=== PATIENT | male | born 1955 | race Caucasian/White ===

== ENCOUNTER → 2017-04-11 | Day surgery (SDC) | payer OTHER ==
[~2017-04-11] VITALS: Ht 167.6 cm; Wt 79.4 kg
[~2017-04-11] MED LIST: BACITRACIN28.4 GM NASB; BOTOX200 UNIT INJ; CENTRUM SILVER1 EAC3 PO; CLONAZEPAM1 M2 PO; CLONIDINE HCL0.1 MG PO; CRESTOR5 M1 PO; DOXEPIN HCL10 MG PO; FENOFIBRATE145 M1 PO; FLUOXETINE HCL20 M2 PO; FML5 ML OU; LEVOTHYROXINE25 MCG PO; LOVAZA1 G1 PO; MOBIC7.5 M1 PO; MUCINEX600 M1 PO; NEXIUM20 M1 PO; PROPRANOLOL HCL40 M1 PO; RHINOCORT ALL8.43 ML NASB; VITAMIN D250000 UNIT PO; VITAMIN E400 UNI3 PO
--- NOTE | 2017-04-18 12:04 | Operative Report ---
Operative/Inv Procedure Report Surgery Date: 04/11/17 Name of Procedure: #1. Left rotator cuff repair 2. Subacromial decompression #3 extensive glenohumeral debridement including biceps tenotomy Pre-Operative Diagnosis: #1 impingement #2 extensive glenoid labral tear including superior labrum #3 biceps tendon tear partial Post-Operative Diagnosis: Same with additional rotator cuff tear left Estimated Blood Loss: scant Surgeon/[employer] Repairer: Raina ASHBY,Wilson Klein Anesthesia: general endotracheal tube, block Drains: None Specimens: None Complications: None Condition: Stable Operative Indication: Patient is a 61-year-old man who was diagnosed with extensive circumferential labral tear as well as partial biceps tendon tear and impingement. He was treated conservatively for. Unfortunately had persistent and ongoing symptoms. MRI evaluation confirmed pathology. There was no definite rotator cuff tear but significant inflammation which made obscured a rotator cuff tear. Due to ongoing symptoms that interfere with normal activities of daily living, he wished to proceed with arthroscopic management of the problem. Risks benefits and expectations of procedure were discussed including but not limited to persistent shoulder pain, need for subsequent surgery, stiffness, anesthesia risks, injury blood vessel or nerve. We also discussed the way to deal with the partial biceps tendon tear. I explained to the patient that he would be better off with biceps tenotomy based on his age and activity expectations. However we did discuss the option of biceps tendon repair depending on intraoperative findings. He wished to proceed with tenotomy after discussion area he also understood that there would be completely evaluation of the rotator cuff and if there was a tear than this would be repaired as well. Operative/Procedure Note Note: Patient was brought to the operating room and transferred to the operative table. Once under appropriate anesthesia the patient was placed into a beachchair position. All bony prominences well-padded. The left upper extremity was prepped and draped in standard fashion. Preoperative IV antibiotics were given prophylactically. A standard posterior portal site was established after the joint was injected with approximately 30 mL of sterile normal saline. The posterior portal site was established. The glenohumeral joint was evaluated. There was extensive complex tearing of the glenoid labrum especially superiorly and posteriorly. I established an anterior portal site under direct vision and then was able to debride the labral tissue. Clearly there was a partial biceps tendon tear and near the insertion site on the superior labrum. Due to these findings and previous discussions I proceeded with biceps tenotomy. The stumps on both sides were debrided. After debridement extensive debridement of the labral tissue and some synovectomy we turned our attention to the rotator cuff. The undersurface of rotator cuff was evaluated. Clearly, there was significant thinning out of this supraspinatus insertion site. Extensive complexity and tearing of this area. After debridement there was clearly a full-thickness tear. After debriding the anatomic bed for the supraspinatus from the glenohumeral aspect I switched into the subacromial space with my portal posteriorly. I evaluated this area and did a complete bursectomy in order to evaluate the extension of the rotator cuff tear. I established a anterior lateral portal site and was able to probe this area and confirm the size of the tear there was complexity to the point where satisfied repair was elected to be done first and this was done in standard fashion by using the anterior portal site as a shuttle site and a tie down the knots under direct vision. Once this was completed we did place one anchor along the lateral aspect of tuberosity in standard fashion. The bone quality was satisfactory. We passed sutures using the first pass through the rotator cuff edge which was also debrided down to normal tissue and was able to bring down the rotator cuff to its anatomic position. I was satisfied repair took the shoulder through range of motion. I then did a copious irrigation of the subacromial space and completed the subacromial decompression by complete the bursectomy but also taking the curved acromion and confirming flushness of the undersurface. I did switch portals in between to confirm there was no lateral curvature of the acromion and finished my subacromial decompression from the posterior portal as my working portal and I confirm the flushness of the undersurface and after irrigation of the subchondral space and removed all fluid and instruments from the subacromial space and closed the portal sites interrupted fashion. Progestins were applied and patient was awakened and taken to recovery room in good condition. No intraoperative complications. Blood loss was minimal Discharge Disposition: PACU
== END ==
LOC: STS 02:10
DX: M75.102 Unspecified rotator cuff tear or rupture of left shoulder, not specified as traumatic (principal); M25.812 Other specified joint disorders, left shoulder; M75.42 Impingement syndrome of left shoulder; I10 Essential (primary) hypertension; K21.9 Gastro-esophageal reflux disease without esophagitis
CPT/HCPCS: J0171; J0690; J2250